=== PATIENT | female | born 1985 | race Caucasian/White ===

== ENCOUNTER → 2020-11-17 | Outpatient (CLI) | payer OTHER | LOC: KOH-I 14:00 | DX: R10.9 Unspecified abdominal pain (principal); N13.2 Hydronephrosis with renal and ureteral calculous obstruction; K76.0 Fatty (change of) liver, not elsewhere classified; T83.39XA Other mechanical complication of intrauterine contraceptive device, initial encounter | CPT/HCPCS: 74176 ==